=== PATIENT | female | born 1990 | race Caucasian/White ===

== ENCOUNTER 2017-09-29 12:50 | Outpatient (CLI) ==
[2015-08-16 12:44] VITALS: BMI 45.8
== END 2017-09-29 12:51 | disposition home or self-care (01) ==
LOC: LAB 12:50
PROVIDERS: ATTEND Nurse Practitioner Women's Health
DX: Z36.89 Encounter for other specified antenatal screening (principal); Z3A.23 23 weeks gestation of pregnancy
CPT/HCPCS: 36415; 82947; 85025; 86701

== ENCOUNTER 2017-12-23 09:16 | Outpatient (CLI) ==
[2015-08-16 12:44] VITALS: BMI 45.8
== END 2017-12-23 09:17 | disposition home or self-care (01) ==
LOC: LAB 09:16
PROVIDERS: ATTEND Emergency Medicine
DX: R35.0 Frequency of micturition (principal)
CPT/HCPCS: 81001

== ENCOUNTER 2018-06-21 17:58 | Emergency (ER) ==
[2018-06-21 18:06] VITALS: BP 157/104; TEMP 98.5; BMI 45.3
--- NOTE | 2018-06-21 18:11 | ED.PDOC ---
General ED Provider: Dr. GIA RUBIO-ER Chief Complaint: Tooth Problem Stated Complaint: my tooth hurts and tylenol and motrin is not helping Time Seen by Physician: 18:09 Mode of Arrival: Walk-In Information Source: Patient Exam Limitations: No limitations Primary Care Provider: RHETT PEÑA Nursing and Triage Documentation Reviewed and Agree: Yes Does patient meet sepsis criteria?: No System Inflammatory Response Syndrome: Not Applicable Sepsis Protocol: For patient's 13 years and over: Temp is 96.8 and below OR 101 and greater Pulse >90 BPM Resp >20/minute Acutely Altered Mental Status Are patient's symptoms suggestive of a new infection, such as: -Pneumonia -Skin, Soft Tissue -Endocarditis -UTI -Bone, Joint Infection -Implantable Device -Acute Abdominal Infection -Wound Infection -Meningitis -Blood Stream Catheter Infection -Unknown EENT Complaint Exam - Dental/Oral Complaint/Exam Mechanism of Injury: No known trauma Onset/Duration: several days Symptoms Are: Still present Timing: Constant Initial Severity: Mild Current Severity: Moderate Location: left upper premolar Character: Reports: Dull, Aching, Throbbing Alleviating: Reports: None Associated Signs and Symptoms: Reports: Swelling Tooth Findings: Present: Percussion tenderness Cervical Lymphadenopathy Present: No Facial Swelling Present: No Bleeding Present: No Oropharynx Findings: Absent: Clots, Active bleeding Septal Hematoma: No Foreign Body Present: No Dysphagia Present: No Drooling Present: No Asymmetrical Tonsillar Swelling Present: No Uvula Midline: Yes Marci-tonsillar Fluctuence: No Trismus Present: No Palatal Petechiae Present: No Scarlatinaform Rash Present: No Differential Diagnoses: Odontogenic Pain Review of Systems - Review Of Systems Constitutional: Reports: No symptoms Eyes: Reports: No symptoms Ears, Nose, Mouth, Throat: Reports: Mouth pain Respiratory: Reports: No symptoms Cardiac: Reports: No symptoms GI: Reports: No symptoms : Reports: No symptoms Musculoskeletal: Reports: No symptoms Skin: Reports: No symptoms Neurological: Reports: No symptoms Endocrine: Reports: No symptoms Hematologic/Lymphatic: Reports: No symptoms All Other Systems: Reviewed and Negative Past Medical History - Past Medical History Previously Healthy: Yes Endocrine: Reports: None Cardiovascular: Reports: None Respiratory: Reports: None Hematological: Reports: None Gastrointestinal: Reports: None Genitourinary: Reports: None Neuro/Psych: Reports: None Musculoskeletal: Reports: None Cancer: Reports: None Last Menstrual Period: 03/2018 Is - Surgical History General Surgical History: Reports: , Cholecystectomy, Tonsillectomy, Orthopedic (BILATERAL KNEE SURGERY), Other (EYE SURGERY, , PE TUBES) - Family History Family History: Reports: Unknown - Social History Smoking Status: Current every day smoker, Light tobacco smoker Hx Substance Use: No Alcohol Screening: Occasionally - Immunizations Tetanus Shot up to Date: Yes Physical Exam - Physical Exam Appearance: Well-appearing, No pain distress, Well-nourished Pain Distress: Moderate Eyes: SHANNA, EOMI, Conjunctiva clear ENT: Ears normal, Nose normal Neck: Supple Respiratory: Airway patent, Breath sounds clear, Breath sounds equal, Respirations nonlabored Cardiovascular: RRR GI/: Soft Musculoskeletal: Normal strength, ROM intact, No edema, No calf tenderness Skin: Warm, Dry, Normal color Neurological: Sensation intact, Motor intact, Reflexes intact, Cranial nerves intact, Alert, Oriented Psychiatric: Affect appropriate, Mood appropriate Critical Care Note - Critical Care Note Total Time (mins): 0 Course - Course Vital Signs: Temp Pulse Resp BP Pulse Ox 06/21/18 17:59 98.5 F 92 H 20 157/104 H 95 Departure - Departure Time of Disposition: 18:10 Disposition: HOME SELF-CARE Discharge Problem: Toothache Instructions: Toothache (ED) Condition: Good Pt referred to PMD for follow-up: Yes IPMP verified?: No Additional Instructions: amoxil 500mg tid x 7 days--norco 7.5mg q 4hrs prn pain #10--you will need to bottle feed your infant while taking these meds--f/u dentist kianna Allergies/Adverse Reactions: Allergies adhesive Allergy (Mild, Verified 06/21/18 18:04) Rash blisters povidone-iodine [From Betadine] Allergy (Mild, Verified 06/21/18 18:04) Rash clindamycin HCl [From Cleocin] Adverse Reaction (Verified 06/21/18 18:04) clindamycin palmitate HCl [From Cleocin] Adverse Reaction (Verified 06/21/18 18: 04) clindamycin phosphate [From Cleocin] Adverse Reaction (Verified 06/21/18 18:04) Home Medications: Ambulatory Orders Multivitamin 1 each PO DAILY 09/18/16 Ibuprofen 800 mg PO PRN 12/23/17 Disposition Discussed With: Patient
== END 2018-06-21 18:16 | disposition home or self-care (01) ==
LOC: ED 17:58
DX: K08.89 Other specified disorders of teeth and supporting structures (principal); F17.210 Nicotine dependence, cigarettes, uncomplicated
CPT/HCPCS: 99282